=== PATIENT | female | born 2000 | race African-American/Black ===

== ENCOUNTER 2020-02-13 11:14 | Outpatient (CLI) | payer MEDICAID ==
[2020-02-13 12:12] LABS: APPEARANCE,URINE CLEAR; BILIRUBIN,URINE NEGATIVE (NEGATIVE); COLOR,URINE STRAW; GLUCOSE, URINE NEGATIVE (NEGATIVE); KETONES,URINE NEGATIVE (NEGATIVE); LEUKOCYTE ESTERASE,URINE MODERATE (NEGATIVE); NITRITE,URINE NEGATIVE (NEGATIVE); PROTEIN,URINE NEGATIVE (NEGATIVE); URINE SPECIFIC GRAVITY 1.003; UROBILINOGEN,URINE NEGATIVE mg/dL (<2.0)
[2020-02-13 12:17] LABS: ABSOLUTE EOSINOPHILS # (AUTO) 0.4 10^3/uL (0.0-0.6); ABSOLUTE LYMPHOCYTES (AUTO) 1.3 10^3/uL (0.5-4.7); ABSOLUTE MONOCYTES (AUTO) 0.9 10^3/uL (0.1-1.4); ABSOLUTE NEUT (AUTO) 4.1 10^3/uL (1.7-8.2); BASOPHILS % (AUTO) 0.3 % (0-2); EOSINOPHILS % (AUTO) 6.1 % (0-6); HEMATOCRIT 35.1 % (36.0-47.0); HEMOGLOBIN 11.7 g/dL (12.0-15.5); LYMPHOCYTES % (AUTO) 19.3 % (13-45); MEAN CORPUSCULAR HEMOGLOBIN 30.7 pg (27.0-33.4); MEAN CORPUSCULAR HGB CONC 33.4 g/dL (32.0-36.0); MEAN CORPUSCULAR VOLUME 92 fl (80-97); MONOCYTES % (AUTO) 13.6 % (3-13); PLATELET COUNT 213 10^3/uL (150-450); RED BLOOD COUNT 3.81 10^6/uL (3.72-5.28); RED CELL DISTRIBUTION WIDTH 13.7 % (11.5-14.0); SEGMENTED NEUTROPHILS % (AUTO) 60.7 % (42-78); TOTAL CELLS COUNTED % (AUTO) 100 %; WHITE BLOOD COUNT 6.7 10^3/uL (4.0-10.5)
[2020-02-13 12:27] LABS: URINE AMPHETAMINES SCREEN NEGATIVE; URINE BARBITURATES SCREEN NEGATIVE; URINE COCAINE SCREEN NEGATIVE; URINE MARIJUANA (THC) SCREEN NEGATIVE; URINE METHADONE SCREEN NEGATIVE; URINE PHENCYCLIDINE SCREEN NEGATIVE
[2020-02-13 12:32] LABS: UR PRO/CREAT RATIO RESULT 0.5 mg/mg (0.0-0.2); URINE BENZODIAZEPINES SCREEN NEGATIVE; URINE CREATININE 28.5 mg/dL (16-327); URINE PROTEIN 14.4 mg/dL (<12)
[2020-02-13 12:57] LABS: ALBUMIN 3.6 g/dL (3.7-5.6); ALKALINE PHOSPHATASE 155 U/L (50-135); ANION GAP 7 (5-19); ASPARTATE AMINO TRANSFERASE 23 U/L (5-30); BILIRUBIN,TOTAL 0.7 mg/dL (0.2-1.3); BLOOD UREA NITROGEN 5 mg/dL (7-20); CALCIUM 10.3 mg/dL (8.4-10.2); CARBON DIOXIDE 26 mmol/L (22-30); CHLORIDE 104 mmol/L (98-107); GLUCOSE 80 mg/dL (75-110); POTASSIUM 4.3 mmol/L (3.6-5.0); TOTAL PROTEIN 6.7 g/dL (6.3-8.2); URIC ACID 2.6 mg/dL (2.5-6.2)
--- NOTE | 2020-02-13 14:09 | Non Stress Test Report ---
Non Stress Test Datetime Report Generated by CPN: 02/13/2020 14:09 DEMOGRAPHIC EGA NST: 38.4 INDICATION Indication for Study (NST) Other: IUPat 38.4; Pre E workup VITAL SIGNS Temperature - NST: 98.8 Pulse - NST: 67 RESP - NST: 18 NBPSYS NST: 119 NBPDIA NST: 72 MONITORING Monitor Explained: Monitor Explained; Test Explained; Patient Verbalized Understanding Time on Monitor: 02/13/2020 11:32 Time off Monitor: 02/13/2020 12:35 NST Duration: 63 NST INTERVENTIONS NST Interventions: PO Hydration Physician Notified NST: P. Mckeon, CNM BABY A: [id number] BABY A Movement : Present Contraction Frequency : Irreg FHR Baseline : 130 Accelerations : 15X15 Decelerations : None Variability : Moderate 6-25bpm NST Review: Meets Criteria for Reactive NST NST Review and Verified By : Moriah Fonseca RNC NST Results: Reactive NST REPORT Report Trigger: Send Report
== END 2020-02-13 13:20 | disposition home or self-care (01) ==
LOC: LC 11:14
PROVIDERS: ATTEND Obstetrics & Gynecology Gynecology
DX: O14.93 Unspecified pre-eclampsia, third trimester (principal); Z3A.38 38 weeks gestation of pregnancy
CPT/HCPCS: 36415; 59025; 80053; 80307; 81001; 82570; 83615; 84156; 84550; 85025

== ENCOUNTER 2020-02-14 13:45 | Inpatient (IN) | payer MEDICAID ==
[2020-02-14 15:21] LABS: URINE PROTEIN 13.5 mg/dL (<12)
[2020-02-14 15:27] LABS: 24 HOUR URINE PROTEIN RESULT 324 mg/day (42-225)
[2020-02-14] MEDS ORDERED: PENICILLIN G POTASSIUM 5,000,000 UNIT in DEXTROSE 5%-WATER 100 ML IV ONE (15:33)
[2020-02-14] MEDS ORDERED: RINGERS SOLUTION,LACTATED 1,000 ML IV ONE (15:33)
[2020-02-14] MEDS ORDERED: PENICILLIN G POTASSIUM 2,500,000 UNIT in DEXTROSE 5%-WATER 50 ML IV SCH ×2 (15:45→19:34)
--- NOTE | 2020-02-14 15:45 | Admission Physical ---
Datetime Report Generated by CPN: 02/14/2020 15:44 CURRENT ADMISSION Hx Assessment: The History has been Reviewed and is Current Chief Complaint: Signs/Symptoms Gestational HTN Indication for Induction: Eclampsia - Moderate; Polyhydramnios Admit Impression : Term, Intrauterine ; No Active Labor; Intact Membranes; Obstetrical Complication Admit Impression- Other: Pre-E Admit Plan: Admit to Unit; Initiate Labor Induction Protocol ALLERGIES Medication Allergies: No Medication Allergies: No Known Allergies (02/13/2020) Latex: No Latex Allergies OBSTETRICAL HISTORY EDC: 02/23/2020 00:00 : 2 Para: 0 Term: 0 : 0 SAB: 1 IAB: 0 [place] PHYSICAL EXAM General: Normal HEENT: Normal Neurologic: Normal Thyroid: Normal Heart: Normal Lungs: Normal Breast: Deferred Back: Normal Abdomen: Normal Genitourinary Exam: Normal Extremities: Normal DTRs: Normal Pelvic Type: Adequate Physical Exam Comments: G2AB1 [facility] 02-23-2020 24 hr ua = 324 38+5 weeks Polyhydramnios GBS + Vital Signs: Reviewed Details Vital Signs: elevated BP FETUS A EGA: 38.5 Monitoring: External US Variability: Moderate 6-25bpm Accelerations: 15X15 Decelerations: None FHR Category: Category I Presentation: Vertex Admit Comment: 19 y/o here to turn in 24 hour urine and BP assessment, BP elevated, 24 hour ua = 324, discussed POC with Dr. Espinal, plan to admit amd IOL Cat 1 strip, irreg uc's + GBS VE 1/thick/high on 02-13-2020 INFORMED CONSENT Assignment: Kavita Espinal MD Signature: with User ID: [email or web address] : with User ID: [email or web address]
[2020-02-14 16:10] LABS: ABSOLUTE EOSINOPHILS # (AUTO) 0.3 10^3/uL (0.0-0.6); ABSOLUTE LYMPHOCYTES (AUTO) 1.5 10^3/uL (0.5-4.7); ABSOLUTE MONOCYTES (AUTO) 0.5 10^3/uL (0.1-1.4); ABSOLUTE NEUT (AUTO) 4.4 10^3/uL (1.7-8.2); BASOPHILS % (AUTO) 0.4 % (0-2); EOSINOPHILS % (AUTO) 4.3 % (0-6); HEMATOCRIT 39.5 % (36.0-47.0); HEMOGLOBIN 13.1 g/dL (12.0-15.5); LYMPHOCYTES % (AUTO) 22.7 % (13-45); MEAN CORPUSCULAR HEMOGLOBIN 30.9 pg (27.0-33.4); MEAN CORPUSCULAR HGB CONC 33.2 g/dL (32.0-36.0); MEAN CORPUSCULAR VOLUME 93 fl (80-97); MONOCYTES % (AUTO) 7.2 % (3-13); PLATELET COUNT 242 10^3/uL (150-450); RED BLOOD COUNT 4.24 10^6/uL (3.72-5.28); RED CELL DISTRIBUTION WIDTH 13.4 % (11.5-14.0); SEGMENTED NEUTROPHILS % (AUTO) 65.4 % (42-78); TOTAL CELLS COUNTED % (AUTO) 100 %; WHITE BLOOD COUNT 6.8 10^3/uL (4.0-10.5)
[2020-02-14 16:28] LABS: ALBUMIN 4.3 g/dL (3.7-5.6); ALKALINE PHOSPHATASE 167 U/L (50-135); ANION GAP 11 (5-19); ASPARTATE AMINO TRANSFERASE 25 U/L (5-30); BILIRUBIN,TOTAL 0.9 mg/dL (0.2-1.3); BLOOD UREA NITROGEN 5 mg/dL (7-20); CALCIUM 10.4 mg/dL (8.4-10.2); CARBON DIOXIDE 24 mmol/L (22-30); CHLORIDE 102 mmol/L (98-107); GLUCOSE 105 mg/dL (75-110); POTASSIUM 3.9 mmol/L (3.6-5.0); TOTAL PROTEIN 7.4 g/dL (6.3-8.2); URIC ACID 2.6 mg/dL (2.5-6.2)
[2020-02-14] MEDS: RINGERS SOLUTION,LACTATED 1,000 ML IV PRN (17:23)
[2020-02-14] MEDS ORDERED: DINOPROSTONE 10 MG VAGINAL INSERT.SR ONE (18:52)
[2020-02-14 20:00] LABS: URINE AMPHETAMINES SCREEN NEGATIVE; URINE BARBITURATES SCREEN NEGATIVE; URINE BENZODIAZEPINES SCREEN NEGATIVE; URINE COCAINE SCREEN NEGATIVE; URINE MARIJUANA (THC) SCREEN NEGATIVE; URINE METHADONE SCREEN NEGATIVE; URINE PHENCYCLIDINE SCREEN NEGATIVE
[2020-02-14] MEDS ORDERED: CLOBETASOL PROPIONATE 0.05% CREAM 15 GM TP PRN (20:00)
[2020-02-14] MEDS ORDERED: MAG HYDROX/AL HYDROX/SIMETH SUSP 30 ML UDCUP ONE (23:28)
[2020-02-14] MEDS ORDERED: MAG HYDROX/AL HYDROX/SIMETH SUSP 30 ML UDCUP PO ONE (23:30)
[2020-02-15] MEDS: RINGERS SOLUTION,LACTATED 1,000 ML IV PRN (01:45)
[2020-02-15] MEDS ORDERED: ONDANSETRON HCL INJ/PF 4 MG/2 ML SDV IV PRN (03:19)
[2020-02-15] MEDS ORDERED: ONDANSETRON HCL INJ/PF 4 MG/2 ML SDV ONE ×2 (03:20→18:22)
[2020-02-15] MEDS ORDERED: MISOPROSTOL 0.2 MG TABLET ONE (07:46)
[2020-02-15] MEDS ORDERED: OXYTOCIN/0.9 % SODIUM CHLORIDE 30 UNIT/500 ML RTUINJ ONE ×3 (07:46→19:56)
[2020-02-15] MEDS ORDERED: LIDOCAINE 1% INJ-PF (10 MG/ML) 30 ML SDV ONE (07:46)
[2020-02-15] MEDS ORDERED: PENICILLIN G-K 5 MILLION UNIT VIAL ONE ×3 (07:46→16:03)
[2020-02-15] MEDS ORDERED: OXYTOCIN 10 UNIT/ML VIAL ONE ×2 (07:46→18:21)
[2020-02-15] MEDS ORDERED: EPHEDRINE SULFATE INJ 50 MG/1 ML AMPULE ONE ×2 (08:39→18:23)
[2020-02-15] MEDS ORDERED: FENTANYL/BUPIVACAINE/NS/PF 300 MCG/150 ML RTUINJ EPI ONE (08:40)
[2020-02-15] MEDS ORDERED: ROPIVACAINE HCL 0.2% INJ/PF (2 MG/ML) 20 ML SDV ONE (08:40)
[2020-02-15] MEDS: PENICILLIN G POTASSIUM 2,500,000 UNIT in DEXTROSE 5%-WATER 50 ML IV SCH ×2 (12:11→16:12)
[2020-02-15] MEDS ORDERED: CEFAZOLIN 1 GM/D5W RTU 1 GM/50 ML RTUPB IV ONE (18:05)
[2020-02-15] MEDS ORDERED: CITRIC ACID/SODIUM CITRATE ORAL SOLN 15 ML UDCUP ONE (18:05)
[2020-02-15] MEDS ORDERED: KETOROLAC TROMETHAMINE INJ/PF 30 MG/1 ML SDV ONE (18:21)
[2020-02-15] MEDS ORDERED: FENTANYL CITRATE INJ/PF 100 MCG/2 ML AMPUL ONE (18:22)
[2020-02-15] MEDS ORDERED: MIDAZOLAM 2 MG/2 ML INJ ONE (18:22)
[2020-02-15] MEDS ORDERED: ACETAMINOPHEN 1,000 MG/100 ML RTUPB IV ONE (18:22)
[2020-02-15] MEDS ORDERED: KETAMINE HCL INJ 500 MG/10 ML VIAL ONE (18:22)
[2020-02-15] MEDS ORDERED: LIDOCAINE 2%/EPINEPHRINE INJ 20 ML VIAL ONE (18:23)
[2020-02-15] MEDS ORDERED: ACETAMINOPHEN 325 MG TABLET PO PRN (19:24)
[2020-02-15] MEDS ORDERED: SIMETHICONE 80 MG TAB.CHEW PO PRN (19:24)
[2020-02-15] MEDS ORDERED: DIPH/PERTUSS(ACELL)/TETANUS VAC/PF 0.5 ML SYR (>=10YO) IM PRN (19:24)
[2020-02-15] MEDS ORDERED: RINGERS SOLUTION,LACTATED 1,000 ML IV PRN (19:24)
[2020-02-15] MEDS ORDERED: MEASLES,MUMPS&RUBELLA VACC/PF 0.5 ML VIAL SUBCUT PRN (19:24)
[2020-02-15] MEDS ORDERED: PROMETHAZINE HCL INJ 25 MG/1 ML VIAL IV PRN (19:24)
[2020-02-15] MEDS ORDERED: OXYCODONE-ACETAMINOPHEN 5-325 MG TABLET PO PRN (19:24)
[2020-02-15] MEDS ORDERED: OXYTOCIN/0.9 % SODIUM CHLORIDE 30 UNIT/500 ML RTUINJ IV PRN (19:24)
[2020-02-15] MEDS ORDERED: MORPHINE SULFATE 10 MG/ML INJ IV PRN (19:29)
[2020-02-15] MEDS ORDERED: ACETAMINOPHEN 1,000 MG/100 ML RTUPB IV PRN (19:29)
--- NOTE | 2020-02-15 19:38 | Operative Report ---
Operative Report DATE OF SURGERY: 02/15/20 PREOPERATIVE DIAGNOSIS: IUP at 38 weeks and 5 days, preeclampsia, nonreassuring heart tones POSTOPERATIVE DIAGNOSIS: Same OPERATION: Primary SURGEON: NABIL LAWLER ANESTHESIA: Spinal COMPLICATIONS: None ESTIMATED BLOOD LOSS: 800 cc INTRAOPERATIVE FINDINGS: Female infant cephalic presentation with Apgars of 8 and 9, nuchal PROCEDURE: PROCEDURE IN DETAIL: The patient was taken to the operating room, prepared and draped in a normal sterile fashion in a supine position with a leftward tilt. A transverse skin incision was made with a scalpel and carried through to the underlying layer of fascia with the same scalpel. The fascia was excised in the midline and extended laterally with Juvencio. The fascia was then dissected from the rectus muscle sharply with Juvencio and the rectus muscle was divided and the peritoneal cavity was entered sharply with the same Metzenbaum. With good visualization of the bladder and the uterus the bladder blade was inserted. The hysterotomy was nicked with a scalpel and extended laterally with surgeon finger fraction. The infant was then delivered atraumatically. The nose and mouth were suctioned with a suction bulb, the cord was clamped and cut and handed off to awaiting pediatricians. Cord blood was collected. The placenta was removed manually. The uterus was exteriorized and cleared of clots and debris. The hysterotomy was closed with 0 Monocryl in a running, locked fashion. A second layer of the same suture was used to imbricate to ensure hemostasis. The uterus was returned to the abdomen and peritoneal cavity was cleared of clots and debris. The rectus muscle and peritoneum were repaired with mattress stitch of 2-0 Chromic. The fascia was closed with 0-Vicryl. The subcutaneous layer was closed with plain catgut and the skin was closed with 4-0 Vicryl. The patient tolerated the procedure well. Sponge, lap, and needle counts correct x2 and the patient was taken to recovery in stable condition.
[2020-02-15] MEDS ORDERED: KETOROLAC TROMETHAMINE INJ/PF 30 MG/1 ML SDV IV SCH (22:00)
[2020-02-15] MEDS: OXYCODONE-ACETAMINOPHEN 5-325 MG TABLET PO PRN (22:56)
[2020-02-16] MEDS: IBUPROFEN 800 MG TABLET PO SCH ×5 (04:43→23:35)
[2020-02-16 06:45] LABS: HEMATOCRIT 27.3 % (36.0-47.0); MEAN CORPUSCULAR HEMOGLOBIN 30.6 pg (27.0-33.4); MEAN CORPUSCULAR HGB CONC 33.6 g/dL (32.0-36.0); MEAN CORPUSCULAR VOLUME 91 fl (80-97); PLATELET COUNT 158 10^3/uL (150-450); RED BLOOD COUNT 2.99 10^6/uL (3.72-5.28); RED CELL DISTRIBUTION WIDTH 13.5 % (11.5-14.0); WHITE BLOOD COUNT 12.2 10^3/uL (4.0-10.5)
[2020-02-16 06:57] LABS: HEMOGLOBIN 9.2 g/dL (12.0-15.5)
--- NOTE | 2020-02-16 09:23 | PDOC PROGRESS REPORT ---
Subjective-OB Progress Note for:: 02/16/20 Subjective: Doing well, feeling better today, mild incisional pain, voiding, OOB Physical Exam (OB) Vital Signs: Temp Pulse Resp BP Pulse Ox 98.0 F 82 16 153/87 H 99 02/16/20 08:55 02/16/20 09:00 02/16/20 08:55 02/16/20 09:00 02/16/20 08:55 Intake & Output 02/15/20 02/16/20 02/17/20 06:59 06:59 06:59 Intake Total 1000 420 Output Total 1640 Balance 1000 -1220 Weight 71.4 kg - PIH/Pre-Eclampsia DTR's: 1 + Clonus: Negative Headache: Absent Epigastric Pain: No Visual Changes: No - Dressing Removed: No - opsite clean/dry/intact - Maternal Morbidity 59. Maternal Morbidity (serious complications experinced by the mother associated with labor and delivery: None of the above - Lochia Lochia Amount: Scant < 10 ml Lochia Color: Rubra/Red - Abdomen Description: Soft, Round Fundal Description: Firm, Midline Fundal Height: u/u - u/2 Objective-Diagnostic Laboratory: 02/16/20 06:15 02/14/20 15:46 02/16/20 06:15 WBC 12.2 H RBC 2.99 L Hgb 9.2 L D Hct 27.3 L MCV 91 MCH 30.6 MCHC 33.6 RDW 13.5 Plt Count 158 Assessment and Plan(PN) - Assessment and Plan (1) GBS (group B Streptococcus carrier), +RV culture, currently Is this a current diagnosis for this admission?: Yes (2) Failure to progress in labor Is this a current diagnosis for this admission?: Yes (3) S/P primary low transverse Is this a current diagnosis for this admission?: Yes (4) Pre-eclampsia Qualifiers: Trimester: third trimester Qualified Code(s): O14.93 - Unspecified pre- eclampsia, third trimester Is this a current diagnosis for this admission?: Yes - Time Spent with Patient Time with patient: Less than 15 minutes Medications reviewed and adjusted accordingly: Yes - Disposition Anticipated Discharge Disposition: Home, Self Care Anticipated Discharge Timeframe: within 48 hours
[2020-02-16] MEDS: DOCUSATE SODIUM 100 MG CAPSULE PO SCH ×2 (10:45→18:09)
[2020-02-16] MEDS: PRENATAL VITAMIN W DHA CAPSULE PO SCH (10:45)
[2020-02-16] MEDS: FERROUS SULFATE 325 MG TABLET PO SCH ×2 (10:45→18:09)
[2020-02-16] MEDS: ASCORBIC ACID 500 MG TABLET PO SCH ×2 (10:45→18:09)
[2020-02-16] MEDS: OXYCODONE-ACETAMINOPHEN 5-325 MG TABLET PO PRN ×2 (10:46→21:09)
[2020-02-16] MEDS ORDERED: KETOROLAC TROMETHAMINE INJ/PF 30 MG/1 ML SDV IV SCH (12:00)
[2020-02-17] MEDS: IBUPROFEN 800 MG TABLET PO SCH ×2 (05:59→13:37)
[2020-02-17] MEDS: OXYCODONE-ACETAMINOPHEN 5-325 MG TABLET PO PRN ×2 (10:03→16:04)
[2020-02-17] MEDS: DOCUSATE SODIUM 100 MG CAPSULE PO SCH (10:03)
[2020-02-17] MEDS: ASCORBIC ACID 500 MG TABLET PO SCH (10:03)
[2020-02-17] MEDS: PRENATAL VITAMIN W DHA CAPSULE PO SCH (10:03)
[2020-02-17] MEDS: FERROUS SULFATE 325 MG TABLET PO SCH (10:03)
--- NOTE | 2020-02-17 10:50 | PDOC DISCHARGE SUMMARY ---
Impression - Admit/DC Date/PCP Admission Date/Primary Care Provider: 02/14/20 16:35 MARTHA HILL MD Discharge Date: 02/17/20 - POD #2, doing well, no complaints, A+ Rubella Immune, , desires to go home today. Denies headache - Discharge Diagnosis (1) Anemia associated with acute blood loss Is this a current diagnosis for this admission?: Yes (2) Failure to progress in labor Is this a current diagnosis for this admission?: Yes (3) GBS (group B Streptococcus carrier), +RV culture, currently Is this a current diagnosis for this admission?: Yes (4) Pre-eclampsia Is this a current diagnosis for this admission?: Yes (5) S/P primary low transverse Is this a current diagnosis for this admission?: Yes - Additional Information Resuscitation Status: Full Code Discharge Diet: Regular Discharge Activity: Balance Activity w/Rest Referrals: [facility] [Provider Group] (Please call and schedule a [facility] for an [facility] check. ) Prescriptions: Ferrous Sulfate [Feosol 325 mg Tablet] 325 mg PO BID #60 tablet Ibuprofen [Motrin 800 mg Tablet] 800 mg PO Q6 #60 tablet Oxycodone HCl/Acetaminophen [Percocet 5-325 mg Tablet] 1 tab PO Q4HP PRN #30 tablet PRN Reason: Pain Scale Of 4 Home Medications: Pnv No.103/Folic/Om3s/Fish Oil [ Gummies] 1 tab PO DAILY 02/13/20 Ferrous Sulfate [Feosol 325 mg Tablet] 325 mg PO BID #60 tablet 02/17/20 Ibuprofen [Motrin 800 mg Tablet] 800 mg PO Q6 #60 tablet 02/17/20 Oxycodone HCl/Acetaminophen [Percocet 5-325 mg Tablet] 1 tab PO Q4HP PRN #30 tablet 02/17/20 HPI Reason(s) for Admission: Induction of Labor Admission Note: pre-eclampsia Procedures: Ultrasound Intrapartum Procedure(s): : Low Cervical, Transverse Hospital Course 59. Maternal Morbidity (serious complications experinced by the mother associated with labor and delivery: None of the above Results Laboratory Results: WBC 12.2 10^3/uL (4.0-10.5) H 02/16/20 06:15 RBC 2.99 10^6/uL (3.72-5.28) L 02/16/20 06:15 Hgb 9.2 g/dL (12.0-15.5) L D 02/16/20 06:15 Hct 27.3 % (36.0-47.0) L 02/16/20 06:15 MCV 91 fl (80-97) 02/16/20 06:15 MCH 30.6 pg (27.0-33.4) 02/16/20 06:15 MCHC 33.6 g/dL (32.0-36.0) 02/16/20 06:15 RDW 13.5 % (11.5-14.0) 02/16/20 06:15 Plt Count 158 10^3/uL (150-450) 02/16/20 06:15 Lymph % (Auto) 22.7 % (13-45) 02/14/20 15:46 [place] % (Auto) 7.2 % (3-13) 02/14/20 15:46 Eos % (Auto) 4.3 % (0-6) 02/14/20 15:46 Baso % (Auto) 0.4 % (0-2) 02/14/20 15:46 Absolute Neuts (auto) 4.4 10^3/uL (1.7-8.2) 02/14/20 15:46 Absolute Lymphs (auto) 1.5 10^3/uL (0.5-4.7) 02/14/20 15:46 Absolute Monos (auto) 0.5 10^3/uL (0.1-1.4) 02/14/20 15:46 Absolute Eos (auto) 0.3 10^3/uL (0.0-0.6) 02/14/20 15:46 Absolute Basos (auto) 0.0 10^3/uL (0.0-0.2) 02/14/20 15:46 Seg Neutrophils % 65.4 % (42-78) 02/14/20 15:46 Sodium 137.1 mmol/L (137-145) 02/14/20 15:46 Potassium 3.9 mmol/L (3.6-5.0) 02/14/20 15:46 Chloride 102 mmol/L (98-107) 02/14/20 15:46 Carbon Dioxide 24 mmol/L (22-30) 02/14/20 15:46 Anion Gap 11 (5-19) 02/14/20 15:46 BUN 5 mg/dL (7-20) L 02/14/20 15:46 Creatinine 0.50 mg/dL (0.52-1.25) L 02/14/20 15:46 Est GFR ( Amer) > 60 (>60) 02/14/20 15:46 Est GFR (MDRD) Non-Af > 60 (>60) 02/14/20 15:46 Glucose 105 mg/dL (75-110) 02/14/20 15:46 Uric Acid 2.6 mg/dL (2.5-6.2) 02/14/20 15:46 Calcium 10.4 mg/dL (8.4-10.2) H 02/14/20 15:46 Total Bilirubin 0.9 mg/dL (0.2-1.3) 02/14/20 15:46 Direct Bilirubin 0.0 mg/dL (0.0-0.4) 02/14/20 15:46 Neonat Total Bilirubin Not Reportable 02/14/20 15:46 Neonat Direct Bilirubin Not Reportable 02/14/20 15:46 Neonat Indirect Bili Not Reportable 02/14/20 15:46 AST 25 U/L (5-30) 02/14/20 15:46 ALT 10 U/L (<35) 02/14/20 15:46 Alkaline Phosphatase 167 U/L (50-135) H 02/14/20 15:46 Lactate Dehydrogenase 299 U/L (120-246) H 02/14/20 15:46 Total Protein 7.4 g/dL (6.3-8.2) 02/14/20 15:46 Albumin 4.3 g/dL (3.7-5.6) 02/14/20 15:46 Ur 24 Hour Volume 2400 mL 02/14/20 13:52 Ur Total Protein 24 Hr 324 mg/day (42-225) H 02/14/20 13:52 Urine Total Protein 13.5 mg/dL (<12) H 02/14/20 13:52 Urine Opiates Screen NEGATIVE 02/14/20 14:22 Urine Methadone Screen NEGATIVE 02/14/20 14:22 Ur Barbiturates Screen NEGATIVE 02/14/20 14:22 Ur Phencyclidine Scrn NEGATIVE 02/14/20 14:22 Ur Amphetamines Screen NEGATIVE 02/14/20 14:22 U Benzodiazepines Scrn NEGATIVE 02/14/20 14:22 Urine Cocaine Screen NEGATIVE 02/14/20 14:22 U Marijuana (THC) Screen NEGATIVE 02/14/20 14:22 Blood Type A POSITIVE 02/14/20 15:46 Antibody Screen NEGATIVE 02/14/20 15:46 Plan Plan of Treatment: d/c home, f/up with a in one week. Time Spent: Less than 30 Minutes
[2020-02-17 12:00] VITALS: BP 137/86
--- NOTE | 2020-02-18 13:53 | Delivery Summary ---
Del Sum A-C Datetime Report Generated by CPN: 02/18/2020 13:53 DELIVERY PERSONNEL DELIVERY PERSONNEL: [id number] Delivery Doctor:: Mariana Leong MD Anesthesiologist:: Miranda Woods MD INDUSTRIAL SERVICE TECHNICIAN:: Kevin Normile, INDUSTRIAL SERVICE TECHNICIAN Label Designer:: Carmen Evangelista RN Neonatal Nurse Practitioner:: DAIVD Frankel Nursery Nurse:: Chrissy Perea RN Aoc Plans Intelligence Officer Chief/PAYROLL DIRECTOR: Elpidio Sandra CST Aoc Plans Intelligence Officer Chief/PAYROLL DIRECTOR: Angelina Andersen, FOOD PRODUCTION MANAGER MATERNAL INFORMATION Delivery Anesthesia: Epidural Medications After Delivery: Pitocin 30 Units in 500ml NS/D5W Delivery QBL: 300 Maternal Complications: None LABOR SUMMARY EDC: 02/23/2020 00:00 No. Babies in Womb: 1 Attempted: No Labor Anesthesia: Epidural LABOR INFORMATION Reason for Induction: Pre-Eclampsia; Polyhydramnios Cervical Ripening Agents: Cervidil Oxytocin: Induction Group B Beta Strep: Positive Antibiotics # of Doses: 3 Antibiotics Time of Last Dose: 02/15/2020 16:12 Name of Antibiotic Given: PCN Steroids Given: None Reason Steroids Not Administered: Not Applicable MEMBRANES Membranes Rupture Method: Spontaneous Rupture of Membranes: 02/15/2020 07:34 Length of Rupture (hr): 11.33 Amniotic Fluid Color: Clear Amniotic Fluid Amount: Large STAGES OF LABOR Stage 3 hr: 0 Stage 3 min: 1 VAGINAL DELIVERY Episiotomy: None Laceration #1: None Sponge Count Correct: N/A Sharps Count Correct: N/A CSECTION DELIVERY Primary Indication: Nonreassuring Status CSection Urgency: Non-Scheduled CSection Incidence: Primary Labor: Labor Elective: Nonelective CSection Incision: Lower Uterine Transverse BABY A INFORMATION Infant Delivery Date/Time: 02/15/2020 18:54 Method of Delivery: Nurse Controlled Delivery: No Born in Route : No : N/A Forceps: N/A Vacuum Extraction: N/A Shoulder Dystocia : No PRESENTATION/POSITION BABY A Presentation: Cephalic Cephalic Presentation: Vertex Breech Presentation: N/A PLACENTA INFORMATION BABY A Placenta Delivery Time : 02/15/2020 18:55 Placenta Method of Delivery: Manual Removal Placenta Status: Delivered SCORES BABY A Heart Rate 1 min: >100 bpm Resp Effort 1 min: Good Cry Reflex Irritability 1 min: Cough or Sneeze or Pulls Away Muscle Tone 1 min: Active Motion Color 1 min: Body [place], Extremities Blue Resuscitation Effort 1 min: Tactile Stimulation SCORE 1 MIN: 9 Heart Rate 5 min: >100 bpm Resp Effort 5 min: Good Cry Reflex Irritability 5 min: Cough or Sneeze or Pulls Away Muscle Tone 5 min: Active Motion Color 5 min: Body [place], Extremities Blue SCORE 5 MIN: 9 INFANT INFORMATION BABY A Gestational Age at Delivery: 38.6 Gestational Status: Early Term- 37- 38.6 Weeks Infant Outcome : Liveborn Condition : Stable Infant Sex: Female IDENTIFICATION BABY A Verification Date/Time: 02/15/2020 19:00 ID Band Number: [id number] Mother's Name Verified: Yes RN Verifying : Chaka Evangelista RN; Shantel Perea RN WEIGHT/LENGTH BABY A Infant Birthweight (gm): 3360 Weight (lb): 7 Infant Weight (oz): 7 Infant Length (in): 20.08 Infant Length (cm): 51.00 CORD INFORMATION BABY A No. Cord Vessels: 3 Nuchal Cord : Around Neck x1, Tight Cord Blood Taken: Yes-For Storage (Mom's Blood type +) Suction: None ASSESSMENT BABY A Complications: Decreased Variability; Multiple Variable Decels; Polyhydramnios Physical Findings at Delivery: Other Physical Findings- Other: see nursery assessment Infant Respirations: Appears Normal Skin to Skin: No Cotton Puller/ALS Called : No Infant Care By: Shantel Perea RN Transferred To: Nursery BABY B INFORMATION : N/A
== END 2020-02-17 17:00 | disposition home or self-care (01) | DRG 788 ==
LOC: LC 13:45 → LR 16:35 → 2N 02-15 21:33
PROVIDERS: ADMIT Student in an Organized Health Care Education/Training Program; ATTEND Student in an Organized Health Care Education/Training Program
PROC: 10D00Z1 Extraction of Products of Conception, Low, Open Approach (ICD-10-PCS; principal; 2020-02-15)
DX: O13.4 Gestational [pregnancy-induced] hypertension without significant proteinuria, complicating childbirth (principal); O15.1 Eclampsia complicating labor; O40.3XX0 Polyhydramnios, third trimester, not applicable or unspecified; O99.824 Streptococcus B carrier state complicating childbirth; O76 Abnormality in fetal heart rate and rhythm complicating labor and delivery; Z3A.38 38 weeks gestation of pregnancy; Z37.0 Single live birth
CPT/HCPCS: 1967; 1968; 36415; 80053; 80307; 83615; 84156; 84550; 85025; 85027; 86592; 86850; 86900; 86901; 94760; 94799; C1758; J0131; J0690; J1885; J2250; J2270; J2405; J2540; J2590; J2795; J3010; J3490; J7060